=== PATIENT | female | born 1945 | race African-American/Black ===

== ENCOUNTER 2018-08-02 20:15 | Inpatient (IN) | payer MEDICARE, MEDICAID ==
[~2018-08-02] VITALS: Ht 160 cm; Wt 62.3 kg
[2018-08-02 22:11] LABS: BASOPHILS % 0.2 % (0.0-2.0); EOSINOPHILS % 1.1 % (0.0-5.0); HEMATOCRIT. 30.4 % (36.0-48.0); HEMOGLOBIN. 9.9 g/dL (12.0-16.0); LYMPHOCYTES % 25.6 % (20.0-50.0); MEAN CORPUSCULAR HEMOGLOBIN 29.6 pg (28.0-32.0); MEAN CORPUSCULAR VOLUME 90.9 fL (81.0-99.0); MEAN PLATELET VOLUME 8.4 fl (7.4-10.4); MONOCYTES % 7.5 % (2.0-8.0); NEUTROPHILS % 65.6 % (40.0-76.0); PLATELET 257 x1000/uL (130-400); RED BLOOD CELL COUNT 3.34 mill/uL (4.2-5.4); RED CELL DISTRIBUTION WIDTH 19.7 % (11.6-14.6)
[2018-08-02 22:15] LABS: CHLORIDE 110 mEq/L (98-107)
[2018-08-02] MEDS ORDERED: ASPIRIN 81MG TABLET PO ONE (22:15)
[2018-08-02 22:17] LABS: PROTHROMBIN TIME 10.2 sec (9.6-11.0)
[2018-08-02 22:21] LABS: ETHANOL BLOOD < 10 mg/dL
[2018-08-02 22:24] LABS: LDL CHOLESTEROL 86 mg/dL (5-100)
[2018-08-03] VITALS (7 sets, daily range): BP systolic 112–147; BP diastolic 49–64
[2018-08-03] MEDS ORDERED: MAGNESIUM/ALUMINUM HYDROXIDE/SIMETHICONE 30ML UDC PO PRN (02:15)
[2018-08-03] MEDS ORDERED: GUAIFENESIN 200MG/10ML SUGAR FREE UDC PO PRN (02:15)
[2018-08-03] MEDS ORDERED: DOCUSATE SODIUM 100MG CAPSULE PO PRN (02:15)
[2018-08-03] MEDS ORDERED: ONDANSETRON HCL 4MG/2ML INJ IV PRN (02:15)
[2018-08-03] MEDS ORDERED: DEXTROSE 50% WATER 50ML SYRINGE IV PRN (02:15)
[2018-08-03] MEDS ORDERED: IPRATROPIUM/ALBUTEROL 0.5-3(2.5)MG/3ML NEB INH PRN (02:15)
[2018-08-03] MEDS ORDERED: ZOLPIDEM TARTRATE 5MG TABLET PO PRN (02:15)
[2018-08-03] MEDS ORDERED: CLONIDINE 0.1MG TABLET PO PRN (02:15)
[2018-08-03] MEDS: TRAMADOL 50MG TABLET PO PRN ×3 (03:00→16:14)
[2018-08-03] MEDS: BLOOD SUGAR DIAGNOSTIC STRIP TEST SCH ×3 (06:07→20:53)
[2018-08-03] MEDS: INSULIN LISPRO 100 UNITS/ML SUBCUT SCH ×3 (06:20→20:59)
[2018-08-03 07:06] LABS: CREATINE KINASE MB FRACTION 1.2 ng/mL (0.5-3.6)
[2018-08-03] MEDS: CLOPIDOGREL 75MG TABLET PO SCH (09:55)
[2018-08-03] MEDS: ENOXAPARIN 40MG/0.4ML SYR SUBCUT SCH (09:55)
[2018-08-03] MEDS: FAMOTIDINE 20MG TABLET PO SCH ×2 (09:55→20:57)
[2018-08-03 17:57] LABS: CREATINE KINASE MB FRACTION 1.2 ng/mL (0.5-3.6)
[2018-08-03] MEDS: ATORVASTATIN CALCIUM 10MG TABLET PO SCH (20:57)
[2018-08-03] MEDS ORDERED: METF-414 MT (22:45)
[2018-08-03] MEDS ORDERED: GABA-531 MT (22:45)
[2018-08-03] MEDS ORDERED: MELO-106 MT (22:45)
[2018-08-03] MEDS ORDERED: PRAM0.128 MT (22:45)
[2018-08-03] MEDS ORDERED: LOSA100T14 MT (22:45)
[2018-08-03] MEDS ORDERED: AMLO10TA80 MT (22:45)
[2018-08-03] MEDS ORDERED: TIMO5DRO32 EACHEYE (22:45)
[2018-08-03] MEDS ORDERED: BACL-141 MT (22:45)
[2018-08-03] MEDS ORDERED: BRIM5DRO6 EACHEYE (22:45)
[2018-08-04] VITALS: BP 141/69
[2018-08-04 04:00] VITALS: BP 140/55
[2018-08-04] MEDS: TRAMADOL 50MG TABLET PO PRN ×2 (05:35→15:15)
[2018-08-04] MEDS: BLOOD SUGAR DIAGNOSTIC STRIP TEST SCH ×4 (05:45→20:49)
[2018-08-04] MEDS: INSULIN LISPRO 100 UNITS/ML SUBCUT SCH ×4 (06:36→21:02)
[2018-08-04 08:00] VITALS: BP 122/52
[2018-08-04] MEDS: CLOPIDOGREL 75MG TABLET PO SCH (09:33)
[2018-08-04] MEDS: ENOXAPARIN 40MG/0.4ML SYR SUBCUT SCH (09:33)
[2018-08-04] MEDS: FAMOTIDINE 20MG TABLET PO SCH ×2 (09:33→20:49)
[2018-08-04 10:48] LABS: T4 FREE 0.97 ng/dL (0.76-1.46)
[2018-08-04 10:58] LABS: FOLIC ACID (FOLATE) SERUM 11.8 ng/mL (>5.38)
[2018-08-04 12:00] VITALS: BP 161/70
[2018-08-04] MEDS: ACETAMINOPHEN 650MG/20.3ML UDC PO PRN (12:55)
[2018-08-04] MEDS ORDERED: IOHEXOL-350 100 ML BOTTLE ONE (14:17)
[2018-08-04 16:00] VITALS: BP 135/62
[2018-08-04 20:00] VITALS: BP 132/67
[2018-08-04] MEDS: ATORVASTATIN CALCIUM 10MG TABLET PO SCH (20:49)
[2018-08-05] VITALS: BP 145/67
[2018-08-05 04:00] VITALS: BP 123/51
[2018-08-05] MEDS: TRAMADOL 50MG TABLET PO PRN ×2 (04:45→11:54)
[2018-08-05] MEDS: INSULIN LISPRO 100 UNITS/ML SUBCUT SCH ×3 (05:37→17:15)
[2018-08-05] MEDS: BLOOD SUGAR DIAGNOSTIC STRIP TEST SCH ×3 (05:37→17:40)
[2018-08-05 08:00] VITALS: BP 141/75
[2018-08-05] MEDS ORDERED: CYANOCOBALAMIN 1000MCG TABLET PO SCH (08:30)
[2018-08-05] MEDS: CLOPIDOGREL 75MG TABLET PO SCH (08:32)
[2018-08-05] MEDS: FAMOTIDINE 20MG TABLET PO SCH (08:33)
[2018-08-05] MEDS: ENOXAPARIN 40MG/0.4ML SYR SUBCUT SCH (08:33)
[2018-08-05 12:00] VITALS: BP 150/59
[2018-08-05] MEDS: ACETAMINOPHEN 650MG/20.3ML UDC PO PRN (14:43)
[2018-08-05 16:00] VITALS: BP 112/44
[2018-08-05 16:13] VITALS: BP 112/44
== END 2018-08-05 17:55 | DRG 65 ==
LOC: ER 21:55 → 5WST 22:05 → EDBEDREQTM 22:12 → EDBEDREQ 22:12 → EDBEDREQSVC 22:12 → ENRESERV 23:21
PROVIDERS: ADMIT Internal Medicine; ATTEND Internal Medicine
DX: I63.9 Cerebral infarction, unspecified (principal); G81.91 Hemiplegia, unspecified affecting right dominant side; G81.94 Hemiplegia, unspecified affecting left nondominant side; I50.9 Heart failure, unspecified; D64.9 Anemia, unspecified; I11.0 Hypertensive heart disease with heart failure; I65.21 Occlusion and stenosis of right carotid artery; R79.89 Other specified abnormal findings of blood chemistry; E78.00 Pure hypercholesterolemia, unspecified; R26.9 Unspecified abnormalities of gait and mobility; H53.462 Homonymous bilateral field defects, left side; I65.22 Occlusion and stenosis of left carotid artery; E11.9 Type 2 diabetes mellitus without complications; F17.210 Nicotine dependence, cigarettes, uncomplicated; H54.61 Unqualified visual loss, right eye, normal vision left eye; Z95.1 Presence of aortocoronary bypass graft; Z88.8 Allergy status to other drugs, medicaments and biological substances; Z88.1 Allergy status to other antibiotic agents; Z88.6 Allergy status to analgesic agent; I69.322 Dysarthria following cerebral infarction; I69.320 Aphasia following cerebral infarction; I69.391 Dysphagia following cerebral infarction; Z82.49 Family history of ischemic heart disease and other diseases of the circulatory system; Z79.4 Long term (current) use of insulin
CPT/HCPCS: 36415; 70496; 70498; 70544; 70553; 71045; 80061; 80320; 82550; 82553; 82607; 82746; 82962; 83036; 83721; 84439; 84443; 84481; 84484; 92523; 92610; 93005; 93306; 93880; 96372; 97163; 97166; 97530; 99285; J1650; J1815; Q9967; G0480